=== PATIENT | male | born 1990 | race African-American/Black ===

== ENCOUNTER 2022-04-18 22:15 | Emergency (ER) | payer SELFPAY ==
[2022-04-18] VITALS (8 sets, daily range): BP systolic 125–139; BP diastolic 81–88; PULSE 94; RESP 24; TEMP 36.6; O2SAT 92–100
--- NOTE | ~2022-04-18 | CT_ITS ---
EXAMINATION: CT abdomen pelvis w con DATE: 04/18/2022 23:58 INDICATION: Epigastric pain, nausea and vomiting. TECHNIQUE: Computed tomography (CT) of the abdomen and pelvis was performed with 100 mL Omnipaque-350 intravenous contrast. Automated exposure control and iterative reconstruction technique were employe d. The dose-length product was 176.31 mGy-cm. COMPARISON: None FINDINGS: Lung bases are clear. Visualized inferior heart is normal. No pericardial or pleural effusion. 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 Liver, gallbladder, pancreas, spleen, bilateral adrenal glands and kidneys are normal. Bowels incl uding the appendix are normal. No obstruction. Bladder is normal. No free intraperitoneal gas or flui d. No pathologically enlarged abdominal or pelvic lymphadenopathy. Mild lumbar levoscoliosis with lik veronica developmental fusion along the right side of the posterior elements of L4-L5 and right margin of the severely narrowed disc space. IMPRESSION: 1. No acute intra-abdominal/pelvic process. 2. 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 Reviewed, dictated and finalized at location A. IMPRESSION: 1. No acute intra-abdominal/pelvic process. 2. 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
[2022-04-18] MEDS: MORPHINE SULFATE (*CRX) 4 MG/ML INJ IV PUSH (23:06)
[2022-04-18 23:15] LABS: Basophils Percent Auto 0.3 % (0.2-1.2); Eosinophils Percent Auto 0.1 % (0-4.4); Hematocrit 44.8 % (42.0-52.0); Hemoglobin 15.2 g/dL (14.0-18.0); Immature Granulocyte Absolute 0.01 K/mm3 (0.00-0.031); Immature Granulocyte Percent A 0.1 % (0-0.5); Lymphocytes Absolute Auto 1.53 K/mm3 (0.9-3.2); Lymphocytes Percent Auto 22.2 % (18.3-44.2); Mean Corpuscular HGB Conc 33.9 g/dl (32-36); Mean Corpuscular Hemoglobin 30.3 pg (26-34); Mean Corpuscular Volume 89.2 fl (80-100); Mean Platelet Volume 9.5 fl (7.4-10.4); Monocytes Absolute Auto 0.2 K/mm3 (0.1-0.6); Monocytes Percent Auto 3.5 % (2.6-8.5); Neutrophils Absolute Auto 5.1 K/mm3 (1.3-6.7); Neutrophils Percent Auto 73.8 % (45.5-73.1); Platelet Count Result 208 k/mm3 (150-375); Red Blood Count 5.02 M/mm3 (4.6-6.20); Red Cell Distribution Width 13.2 % (11.5-14.5); White Blood Count 6.9 K/mm3 (4.5-10.0)
[2022-04-18 23:26] LABS: Alanine Aminotransferase 19 U/L (6-50); Albumin Level 5.3 g/dL (3.5-5.1); Alkaline Phosphatase 67 U/L (38-126); Anion Gap 16 mmol/L (8-16); Aspartate Amino Transferase 28 U/L (17-59); Bilirubin,Total 0.9 mg/dL (0.2-1.3); Blood Urea Nitrogen 17 mg/dL (9-20); Calcium 10.1 mg/dL (8.4-10.2); Carbon Dioxide 25 mmol/L (22-30); Chloride 98 mmol/L (98-107); Estimated CRCL calculation 84 ml/min; Estimated Glomerular Filt Rate > 60; Glucose 121 mg/dL (65-110); Lipase 184 U/L (23-300); Sodium 139 mmol/L (137-145)
--- NOTE | 2022-04-18 23:48 | PC.NURSE ---
Patient off unit to CT.
[2022-04-19 00:14] VITALS: O2SAT 100
--- NOTE | 2022-04-19 00:16 | ED.ABDPAIN ---
HPI - Abdominal Pain General Chief Complaint: Abdominal Pain Stated Complaint: ABD pain Time Seen by Provider: 04/18/22 22:30 History of Present Illness HPI narrative: Patient is a 32-year-old male who presents ER with abdominal pain. Sudden onset this evening about 1 and half hours prior to arrival. In the mid to upper abdomen. No radiation. Cramping and sharp. Associated nausea and vomiting. He did receive Zofran by EMS. Reports she is having similar symptoms yesterday. No fevers chills or sweats. No diarrhea. Denies constipation. No history of previous surgery. No acid reflux. Related Data Allergies Allergy/AdvReac Type Severity Reaction Status Date / Time No Known Allergies Allergy Verified 04/18/22 22:16 Review of Systems Review of Systems: All systems reviewed & are unremarkable except as noted in HPI and below Constitutional: Constitutional: Denies chills, Denies fatigue and Denies fever(s) ENT: Denies nasal congestion and Denies sore throat Cardiovascular: Cardiovascular: Denies chest pain, Denies rapid heart rate and Denies radiating jaw, neck or arm pain Respiratory: Respiratory: Denies cough and Denies dyspnea Gastrointestinal: Gastrointestinal: Reports abdominal pain, Denies constipation, Denies heartburn, Reports nausea and Reports vomiting Musculoskeletal: Musculoskeletal: Denies myalgias PMFSH Past Medical History Medical History (Updated 04/19/22 @ 02:10 by Venkat Galvez MD) Healthy adult male Surgical History Surgical History (Updated 04/19/22 @ 00:24 by Venkat Galvez MD) No history of previous surgery Exam Narrative: GENERAL: Uncomfortable-appearing, well-nourished, and in no acute distress. HEAD: Normocephalic, atraumatic. EYES: PERRL and EOMI. ENT: Mucous membranes moist. CHEST: Clear to auscultation. No respiratory distress. HEART: Regular rate and rhythm. Normal peripheral pulses. ABDOMEN: Soft, discomfort of the LUQ and epigastrium without guarding, nondistended. EXTREMITIES: Normal range of motion. No edema. SKIN: Warm, dry, no rash. NEURO: Alert and oriented x3. PSYCH: Normal mood and affect. Course Course Emergency Course: Symptoms resolved. Repeat exam with benign abdomen. Discharge home. Vital Signs Vital signs: Vital Signs Temperature 97.9 F 04/18/22 22:25 Pulse Rate 94 10/18/22 22:25 Respiratory Rate 24 H 04/18/22 22:25 Blood Pressure 139/81 04/18/22 22:25 Pulse Oximetry 100 04/18/22 22:25 Oxygen Delivery Room Air 04/18/22 22:25 Temperature 97.9 F 04/18/22 22:25 Pulse Rate 94 04/18/22 22:25 Respiratory Rate 24 H 04/18/22 22:25 Blood Pressure 128/81 04/18/22 23:58 Pulse Oximetry 100 04/19/22 00:17 Oxygen Delivery Room Air 04/18/22 22:25 MDM - Abdominal Pain Lab Data Result diagrams: 04/18/22 23:09 04/18/22 23:09 Labs: Lab Results 04/18/22 04/18/22 04/19/22 Range/Units 23:09 23:09 00:41 WBC 6.9 (4.5-10.0) K/mm3 RBC 5.02 (4.6-6.20) M/mm3 Hgb 15.2 (14.0-18.0) g/dL Hct 44.8 (42.0-52.0) % MCV 89.2 (80-100) fl MCH 30.3 (26-34) pg MCHC 33.9 (32-36) g/dl RDW 13.2 (11.5-14.5) % Plt Count 208 (150-375) k/mm3 MPV 9.5 (7.4-10.4) fl Immature Gran % (Auto) 0.1 (0-0.5) % Neut % (Auto) 73.8 H (45.5-73.1) % Lymph % (Auto) 22.2 (18.3-44.2) % [place] % (Auto) 3.5 (2.6-8.5) % Eos % (Auto) 0.1 (0-4.4) % Baso % (Auto) 0.3 (0.2-1.2) % Lymph # (Auto) 1.53 (0.9-3.2) K/mm3 [place] # (Auto) 0.2 (0.1-0.6) K/mm3 Eos # (Auto) 0.0 (0-0.3) K/mm3 Baso # (Auto) 0.0 (0.0-0.1) K/mm3 Abs Immat Gran (auto) 0.01 (0.00-0.031) K/mm3 Absolute Neuts (auto) 5.1 (1.3-6.7) K/mm3 Absolute Nucleated RBC 0.0 (0.0-0.012) K/mm3 Nucleated RBC % 0.0 (0.0-0.2) % Sodium 139 (137-145) mmol/L Potassium 3.0 L (3.4-5.0) mmol/L Chloride 98 (98-107) mmol/L Carbon Dioxide 25
[2022-04-19 00:17] VITALS: O2SAT 100
[2022-04-19 01:00] LABS: Add Urine Microscopic? YES; Appearance Urine Clear (Clear); Bilirubin Urine Negative (Negative); Blood Urine Negative (Negative); Color Urine Yellow (Yellow); Glucose Urine UA Negative (Negative); Ketones Urine Trace mg/dL (Negative); Leukocyte Esterase Ur Negative LEU/UL (Negative); Mucus Urine Rare /lpf; Nitrate Urine Negative (Negative); Protein Urine Negative (Negative); Squamous Epithelial Cell Urine Rare /hpf (Few); Urobilinogen Urine Negative mg/dL (<2.0); WBC Urine 0-3 /hpf
[2022-04-19 01:01] LABS: Specific Grav Ur > 1.060 (1.001-1.035)
[2022-04-19 02:25] VITALS: BP 128/73; PULSE 55; RESP 18; O2SAT 100
== END 2022-04-19 02:29 | disposition home or self-care (01) ==
PROVIDERS: Emergency Provider Emergency Medicine
DX: R10.13 Epigastric pain (principal)
CPT/HCPCS: 36415; 74177; 80053; 81001; 83690; 85025; 96374; 99284; J2270; Q9967

== ENCOUNTER 2022-04-26 18:52 | Emergency (ER) | payer OTHER, SELFPAY ==
--- NOTE | ~2022-04-26 | XR_ITS ---
XR hand RT min 3V DATE: 04/26/2022 19:26 INDICATION: Punched wall. Pain and swelling of fifth metacarpal. TECHNIQUE: 4 views COMPARISON: None FINDINGS: There is a transverse fracture at the neck of the fifth metacarpal bone with one cortical w idth lateral displacement and moderate apex posteromedial angulation. No other fracture or dislocation. No periosteal reaction or bone destruction. No radiopaque intra-art icular loose body or chondrocalcinosis. No erosive change. IMPRESSION: Boxer's fracture of fifth metacarpal Reviewed, dictated and finalized at location A.
[2022-04-26 19:12] VITALS: BP 121/98; PULSE 55; RESP 14; TEMP 36.7; O2SAT 100
--- NOTE | 2022-04-26 20:42 | ED.UPPEXIN ---
HPI - Extremity Injury (Upper) General Chief Complaint: Extremity Injury, Upper <Sue Rincon PA-C - Last Filed: 04/26/22 20:55> Stated Complaint: right hand swelling - patient punched a wall <Sue Rincon PA-C - Last Filed: 04/26/22 20:55> Time Seen by Provider: 04/26/22 20:22 <Sue Rincon PA-C - Last Filed: 04/26/22 20:55> Source: patient <Sue Rincon PA-C - Last Filed: 04/26/22 20:55> Mode of arrival: ambulatory <Sue Rincon PA-C - Last Filed: 04/26/22 20:55> Limitations: no limitations <Sue Rincon PA-C - Last Filed: 04/26/22 20:55> History of Present Illness HPI narrative: This is a 32 year old male that presents to the ER for right hand injury sustained about 10 days ago. Reports he punched a wall. Reports swelling and pain to the right fifth metacarpal. Denies decreased range of motion or numbness. <Sue Rincon PA-C - Last Filed: 04/26/22 20:55> Related Data Allergies/Adverse Reactions: Allergies Allergy/AdvReac Type Severity Reaction Status Date / Time No Known Allergies Allergy Verified 04/26/22 20:21 <Sue Rincon PA-C - Last Filed: 04/26/22 20:55> Review of Systems Review of Systems: CONSTITUTIONAL: Denies fever MUSCULOSKELETAL: Reports joint pain, and myalgia. NEUROLOGIC: Denies numbness <Sue Rincon PA-C - Last Filed: 04/26/22 20:55> All systems reviewed & are unremarkable except as noted in HPI and below <Sue Rincon PA-C - Last Filed: 04/26/22 20:55> PMFSH Past Medical History Medical History: Medical History (Updated 04/26/22 @ 20:54 by Sue Rincon PA-C) Healthy adult male <Sue Rincon PA-C - Last Filed: 04/26/22 20:55> Surgical History Surgical History: Surgical History (Updated 04/19/22 @ 00:24 by Venkat Galvez MD) No history of previous surgery <Sue Rincon PA-C - Last Filed: 04/26/22 20:55> Social History Social History: Social History (Updated 04/26/22 @ 20:45 by Sue Rnicon PA-C) Substance use: never <Sue Rincon PA-C - Last Filed: 04/26/22 20:55> Exam Narrative: GENERAL: Well-appearing, well-nourished, and in no acute distress. HEAD: Normocephalic, atraumatic. EYES: EOMI. EXTREMITIES: Normal range of motion. Mild edema about the distal right 5th metacarpal. Normal radial pulse. Normal sensation SKIN: Warm, dry, no rash. NEURO: No focal deficits. Alert and oriented x3. PSYCH: Normal mood and affect <Sue Rincon PA-C - Last Filed: 04/26/22 20:55> Course [employer]/PA Physician Supervision For this patient encounter, I reviewed the [employer] or PA documentation, treatment plan, and medical decision making <Demetrius Booker MD - Last Filed: 04/26/22 21:44> Vital Signs Vital signs: Vital Signs Temperature 98.0 F 04/26/22 19:12 Pulse Rate 55 L 04/26/22 19:12 Respiratory Rate 14 04/26/22 19:12 Blood Pressure 121/98 H 04/26/22 19:12 Pulse Oximetry 100 04/26/22 19:12 Oxygen Delivery Room Air 04/26/22 19:12 Temperature 98.0 F 04/26/22 19:12 Pulse Rate 55 L 04/26/22 19:12 Respiratory Rate 14 04/26/22 19:12 Blood Pressure 121/98 H 04/26/22 19:12 Pulse Oximetry 100 04/26/22 19:12 Oxygen Delivery Room Air 04/26/22 19:12 <Sue Rincon PA-C - Last Filed: 04/26/22 20:55> Vital Signs Temperature 98.0 F 04/26/22 19:12 Pulse Rate 55 L 04/26/22 19:12 Respiratory Rate 14 04/26/22 19:12 Blood Pressure 121/98 H 04/26/22 19:12 Pulse Oximetry 100 04/26/22 19:12 Oxygen Delivery Room Air 04/26/22 19:12 Temperature 98.0 F 04/26/22 19:12 Pulse Rate 55 L 04/26/22 19:12 Respiratory Rate 14 04/26/22 19:12 Blood Pressure 121/98 H 04/26/22 19:12 Pulse Oximetry 100 04/26/22 19:12 Oxygen Delivery Room Air 04/26/22 19:12 <Demetrius Booker MD - Last Filed: 04/26/22 21:44> Procedures Orthopedic Splinting/Casting Injury #1: Splinting/Casting Date:
== END 2022-04-26 21:25 | disposition home or self-care (01) ==
LOC: ANHED 20:57
PROVIDERS: Emergency Provider Emergency Medicine
DX: S62.336A Displaced fracture of neck of fifth metacarpal bone, right hand, initial encounter for closed fracture (principal); W22.09XA Striking against other stationary object, initial encounter
CPT/HCPCS: 29125; 73130; 99284